=== PATIENT | male | born 1995 | race Caucasian/White ===

== ENCOUNTER → 2019-12-13 | Outpatient (CLI) | payer MEDICAID ==
[~2019-12-13] MED LIST: FENTANYL CITRATE/PF 50MCG/ML 2ML VIAL ONE; FLUT15.844 BOTHNSTRLS; LIDOCAINE HCL/PF 1% 10 MG/ML 5ML VIAL ONE; LORA10TA7 PO; MIDAZOLAM HCL 2 MG/2 ML VIAL ONE; PROPOFOL 200MG/20ML VIAL IV ONE
== END | disposition home or self-care (01) ==
LOC: LAB 07:52
PROVIDERS: ATTEND Orthopaedic Surgery
DX: Z01.812 Encounter for preprocedural laboratory examination (principal); Z20.828 Contact with and (suspected) exposure to other viral communicable diseases; M23.611 Other spontaneous disruption of anterior cruciate ligament of right knee
CPT/HCPCS: C9803; U0003

== ENCOUNTER → 2019-12-15 | Day surgery (SDC) | payer MEDICAID ==
[~2019-12-15] VITALS: Ht 175.3 cm; Wt 99.8 kg
[~2019-12-15] MED LIST changes: +BUPIVACAINE HCL 0.5% (5MG/ML) 50ML ONE; +EPINEPHRINE 1:1000 1 MG/ML AMP ONE; -FENTANYL CITRATE/PF 50MCG/ML 2ML VIAL ONE; +HYDROCODONE/ACETAMINOPHEN 10/325MG TABLET PO PRN; +HYDROMORPHONE HCL/PF 2MG/ML CPJ IV PRN; +LACTATED RINGERS 1,000 ML IV SCH; +LIDOCAINE HCL 2%/EPINEPHRINE 1:100,000 20 ML VIAL INFIL ONE; -LIDOCAINE HCL/PF 1% 10 MG/ML 5ML VIAL ONE; +MEPERIDINE HCL/PF 25MG/ML CPJ IV PRN; +METOCLOPRAMIDE HCL 10MG/2ML VIAL IV NR; +METOCLOPRAMIDE HCL 10MG/2ML VIAL ONE; -MIDAZOLAM HCL 2 MG/2 ML VIAL ONE; +MORPHINE SULFATE/PF 1MG/ML 10ML AMP ONE; -PROPOFOL 200MG/20ML VIAL IV ONE; +ROPIVACAINE HCL 10MG/ML 20 ML VIAL EPI ONE
[2019-12-15 13:33] VITALS: BP 121/79
== END | disposition home or self-care (01) ==
LOC: OR 05:38
PROVIDERS: ATTEND Orthopaedic Surgery
DX: S83.511A Sprain of anterior cruciate ligament of right knee, initial encounter (principal); S83.241A Other tear of medial meniscus, current injury, right knee, initial encounter; S80.01XA Contusion of right knee, initial encounter; J45.909 Unspecified asthma, uncomplicated; Z79.1 Long term (current) use of non-steroidal anti-inflammatories (NSAID); Z79.899 Other long term (current) drug therapy; Z88.8 Allergy status to other drugs, medicaments and biological substances; Z98.890 Other specified postprocedural states; X58.XXXA Exposure to other specified factors, initial encounter; Y93.89 Activity, other specified; Y92.89 Other specified places as the place of occurrence of the external cause; Y99.8 Other external cause status
CPT/HCPCS: 29888; 64447; 88305; 88311; 97116; 97161; J2250; J2274; J2405; J2704; J2765; J2795; J3010; J3490; L1830